=== PATIENT | female | born 1955 | race African-American/Black ===

== ENCOUNTER 2016-05-04 20:27 | Emergency (ER) | payer MEDICAID ==
[~2016-05-04] VITALS: Ht 165.1 cm; Wt 68.0 kg
[~2016-05-04 20:27] MED LIST: ASPI-1035 PO; CLON0.2T PO; COR3 PO; FURO-151 PO; HYDR-523 PO; LISI-186 PO
[2016-05-04 21:04] VITALS: BP 141/91
[2016-05-04] MEDS ORDERED: IPRATROPIUM BROMIDE (0.02%) 0.5MG/2.5ML NEB HHN STA (21:30)
[2016-05-04] MEDS ORDERED: PREDNISONE 20MG TABLET PO STA (21:30)
[2016-05-04] MEDS ORDERED: ALBUTEROL (0.083%) 2.5MG/3ML NEB HHN STA (21:30)
[2016-05-04] MEDS ORDERED: ACETAMINOPHEN 325MG TABLET PO ONE (21:45)
[2016-05-04 21:49] LABS: HEMATOCRIT. 36.3 % (36.0-48.0); HEMOGLOBIN. 11.6 g/dL (12.0-16.0); MEAN CORPUSCULAR HEMOGLOBIN 26.5 pg (28.0-32.0); MEAN CORPUSCULAR HGB CONC 32.1 g/dL (31.0-37.0); MEAN CORPUSCULAR VOLUME 82.8 fL (81.0-99.0); MEAN PLATELET VOLUME 7.1 fl (7.4-10.4); PLATELET 254 x1000/uL (130-400); RED BLOOD CELL COUNT 4.38 mill/uL (4.2-5.4); RED CELL DISTRIBUTION WIDTH 25.2 % (11.6-14.6); WHITE BLOOD COUNT 12.8 x1000/uL (4.5-11.0)
[2016-05-04 21:54] LABS: DIFFERENTIAL COMMENT 1
[2016-05-04 21:58] LABS: INR 1.1; PROTHROMBIN TIME 11.7 sec
[2016-05-04 22:02] LABS: ALANINE AMINOTRANSFERASE 26 IU/L (13-61); ALBUMIN 2.5 g/dL (3.4-5.0); ANION GAP 14; CALCIUM 8.1 mg/dL (8.5-10.1); CARBON DIOXIDE 28 mEq/L (21-32); CHLORIDE 101 mEq/L (98-107); INDEX HEMOLYSI 1 (1-3); INDEX ICTERIC 1 (1-4); INDEX LIPEMIC 1 (1-3); UREA NITROGEN BLOOD 57 mg/dL (7-21); eGFR > 60 mL/min (>60)
[2016-05-04 22:07] LABS: TROPONIN I 0.17 ng/mL (0.00-0.04)
[2016-05-04 22:40] LABS: ANISOCYTOSIS 2+; PLATELET ESTIMATE NORMAL
[2016-05-04 22:41] LABS: HYPOCHROMASIA 1+; TARGET CELLS 1+
== END 2016-05-04 23:30 | disposition left against medical advice (07) ==
LOC: ER 20:27
DX: R06.02 Shortness of breath (principal); R07.9 Chest pain, unspecified; I11.0 Hypertensive heart disease with heart failure; I50.9 Heart failure, unspecified; J44.9 Chronic obstructive pulmonary disease, unspecified; J45.909 Unspecified asthma, uncomplicated; Z88.6 Allergy status to analgesic agent; Z88.8 Allergy status to other drugs, medicaments and biological substances; Z79.82 Long term (current) use of aspirin; Z79.899 Other long term (current) drug therapy; Z90.710 Acquired absence of both cervix and uterus
CPT/HCPCS: 36415; 71010; 80053; 84484; 85025; 85610; 94640; 99285; J7512; J7611; Z7610

== ENCOUNTER 2016-10-19 02:41 | Inpatient (IN) | payer OTHER ==
[~2016-10-19] VITALS: Ht 162.6 cm; Wt 74.8 kg
[~2016-10-19 02:41] MED LIST changes: -ASPI-1035 PO; +ASPI-1159 PO; +HYDR8TAB43 PO; +HYOSCYAMINE; +LORA0.5T2 PO; +NITR100C PO; +OXYC-159 PO; +POTA10CA42 PO; +SPIR50TA26 PO; +isordil PO
[2016-10-19] MEDS ORDERED: SODIUM CHLORIDE 0.9% 1,000 ML IV ONE (03:02)
[2016-10-19] MEDS ORDERED: NITROGLYCERIN OINT 1GM/INCH UDPKT TD ONE (03:15)
[2016-10-19] MEDS ORDERED: ASPIRIN 81MG TABLET PO ONE (03:15)
[2016-10-19 03:26] LABS: BG FRACTION INSPIRED OXYGEN 21; BG HCO3 ACT 26.4 mmol/L (22.0-26.0); BG METHEMOGLOBIN 0.3 % (0.0-1.5); BG OXYGEN SATURATION 90.8 % (92.0-98.5); BG OXYHEMOGLOBIN 88.7 % (94.0-97.0); BG PCO2 45.4 mmHg (35.0-45.0); BG PH 7.382 (7.350-7.450); BG PO2 67.5 mmHg (75.0-100.0); BG SAMPLE SITE RIGHT RADIAL; BG TOTAL HEMOGLOBIN 10.2 g/dL (12.0-18.0); BG VENT MODE ROOM AIR
[2016-10-19 03:53] LABS: CLARITY URINE CLEAR (CLEAR); COLOR URINE YELLOW (YELLOW); GLUCOSE URINE NEGATIVE (NEGATIVE); KETONES URINE NEGATIVE (NEGATIVE); LEUKOCYTE ESTERASE URINE NEGATIVE (NEGATIVE); NITRITE URINE NEGATIVE (NEGATIVE); OCCULT BLOOD URINE NEGATIVE (NEGATIVE); PROTEIN URINE NEGATIVE (NEGATIVE); SPECIFIC GRAVITY URINE 1.009 (1.005-1.030); UROBILINOGEN URINE 0.2 E.U./dL (0.2-1.0)
[2016-10-19] MEDS ORDERED: ALBUTEROL (0.083%) 2.5MG/3ML NEB HHN NR ×2 (03:58→05:00)
[2016-10-19] MEDS ORDERED: METHYLPREDNISOLONE SOD SUCC 125 MG/2 ML VIAL IV NR (03:58)
[2016-10-19] MEDS ORDERED: LEVOFLOXACIN 750MG PREMIX 150 ML IV NR (04:00)
[2016-10-19] MEDS ORDERED: MAGNESIUM 2 G PREMIX 50 ML IV NR (04:00)
[2016-10-19 04:52] LABS: HEMATOCRIT. 28.5 % (36.0-48.0); HEMOGLOBIN. 8.7 g/dL (12.0-16.0); MEAN CORPUSCULAR HEMOGLOBIN 24.4 pg (28.0-32.0); MEAN CORPUSCULAR VOLUME 79.7 fL (81.0-99.0); MEAN PLATELET VOLUME 7.5 fl (7.4-10.4); PLATELET 291 x1000/uL (130-400); RED BLOOD CELL COUNT 3.57 mill/uL (4.2-5.4); RED CELL DISTRIBUTION WIDTH 23.8 % (11.6-14.6)
[2016-10-19 05:02] LABS: D-DIMER 2.25 mg/L FEU (<0.50); PARTIAL THROMBOPLASTIN TIME 24.5 sec (23.4-31.0); PROTHROMBIN TIME 10.8 sec (9.4-11.6)
[2016-10-19 05:10] LABS: CARBON DIOXIDE 28 mEq/L (21-32); CHLORIDE 103 mEq/L (98-107); ETHANOL BLOOD < 10 mg/dL; TROPONIN I 0.14 ng/mL (0.00-0.04)
[2016-10-19 07:34] LABS: PLATELET ESTIMATE NORMAL
[2016-10-19 08:00] VITALS: BP 149/74
[2016-10-19 08:30] VITALS: BP 149/74
[2016-10-19] MEDS ORDERED: DOCUSATE SODIUM 100MG CAPSULE PO PRN (10:15)
[2016-10-19] MEDS ORDERED: ACETAMINOPHEN 325MG TABLET PO PRN (10:15)
[2016-10-19] MEDS: AZITHROMYCIN 500 MG TABLET PO SCH (11:51)
[2016-10-19] MEDS: HYDROCODONE/ACETAMINOPHEN 5/325MG TABLET PO PRN (11:52)
[2016-10-19 11:53] LABS: *AMPHETAMINES SCREEN URINE NEGATIVE (NEGATIVE); *BARBITURATES SCREEN URINE NEGATIVE (NEGATIVE); *BENZODIAZEPINES SCREEN URINE NEGATIVE (NEGATIVE); *COCAINE SCREEN URINE NEGATIVE (NEGATIVE); CANNABINOID URINE SCREEN NEGATIVE (NEGATIVE); METHADONE URINE SCREEN NEGATIVE (NEGATIVE); OPIATES URINE SCREEN PRESUMTIVE POSITIVE (NEGATIVE); PHENCYCLIDINE URINE SCREEN NEGATIVE (NEGATIVE)
[2016-10-19] MEDS: IPRATROPIUM/ALBUTEROL 0.5-3(2.5)MG/3ML NEB INH PRN (11:56)
[2016-10-19] MEDS: BUDESONIDE 0.5MG/2ML NEB HHN SCH ×2 (11:57→21:08)
[2016-10-19 12:00] VITALS: BP 127/77
[2016-10-19] MEDS: HEPARIN 5000 UNITS/ML VIAL SUBCUT SCH ×2 (12:08→21:35)
[2016-10-19] MEDS: SODIUM CHLORIDE 0.9% 1,000 ML IV SCH (12:09)
[2016-10-19] MEDS: DIPHENHYDRAMINE 50MG/ML VIAL IV PRN ×2 (12:28→21:49)
[2016-10-19] MEDS: HYDROMORPHONE HCL/PF 2MG/ML CPJ IV PRN ×3 (12:29→21:48)
[2016-10-19 15:21] LABS: CREATINE KINASE MB FRACTION 5.2 ng/mL (0.5-3.6); TROPONIN I 0.12 ng/mL (0.00-0.04)
[2016-10-19 16:00] VITALS: BP 140/80
[2016-10-19] MEDS: METHYLPREDNISOLONE SOD SUCC 40 MG/ML VIAL IV SCH ×2 (17:47→21:33)
[2016-10-19 20:00] VITALS: BP 129/73
[2016-10-19] MEDS: MAGNESIUM/ALUMINUM HYDROXIDE/SIMETHICONE 30ML UDC PO PRN (21:23)
[2016-10-19] MEDS: CARVEDILOL 3.125 MG TABLET PO SCH (21:34)
[2016-10-19 23:02] LABS: CREATINE KINASE MB FRACTION 4.8 ng/mL (0.5-3.6); TROPONIN I 0.12 ng/mL (0.00-0.04)
[2016-10-20] VITALS: BP 119/85
[2016-10-20] MEDS: PANTOPRAZOLE 40MG DR TABLET PO SCH ×3 (00:09→14:00)
[2016-10-20] MEDS: HYDROMORPHONE HCL/PF 2MG/ML CPJ IV PRN ×5 (03:50→21:38)
[2016-10-20] MEDS: DIPHENHYDRAMINE 50MG/ML VIAL IV PRN ×4 (03:50→22:56)
[2016-10-20 04:00] VITALS: BP 134/79
[2016-10-20] MEDS: SODIUM CHLORIDE 0.9% 1,000 ML IV SCH ×2 (05:52→13:07)
[2016-10-20] MEDS: METHYLPREDNISOLONE SOD SUCC 40 MG/ML VIAL IV SCH ×3 (05:52→21:37)
[2016-10-20 06:58] LABS: HEMATOCRIT. 29.2 % (36.0-48.0); HEMOGLOBIN. 8.9 g/dL (12.0-16.0); MEAN CORPUSCULAR HEMOGLOBIN 24.7 pg (28.0-32.0); MEAN CORPUSCULAR VOLUME 80.7 fL (81.0-99.0); MEAN PLATELET VOLUME 7.7 fl (7.4-10.4); PLATELET 328 x1000/uL (130-400); RED BLOOD CELL COUNT 3.62 mill/uL (4.2-5.4); RED CELL DISTRIBUTION WIDTH 23.4 % (11.6-14.6)
[2016-10-20 08:00] VITALS: BP 138/90
[2016-10-20] MEDS: IPRATROPIUM/ALBUTEROL 0.5-3(2.5)MG/3ML NEB INH PRN ×4 (08:50→21:16)
[2016-10-20] MEDS: BUDESONIDE 0.5MG/2ML NEB HHN SCH ×2 (08:51→21:16)
[2016-10-20] MEDS: HEPARIN 5000 UNITS/ML VIAL SUBCUT SCH ×2 (09:16→21:37)
[2016-10-20] MEDS: AZITHROMYCIN 500 MG TABLET PO SCH (09:16)
[2016-10-20] MEDS: CARVEDILOL 3.125 MG TABLET PO SCH (09:16)
[2016-10-20 10:09] LABS: ATYPICAL LYMPHOCYTES 1
[2016-10-20 10:10] LABS: PLATELET ESTIMATE NORMAL
[2016-10-20 12:00] VITALS: BP 165/78
[2016-10-20] MEDS: MAGNESIUM/ALUMINUM HYDROXIDE/SIMETHICONE 30ML UDC PO PRN ×2 (13:06→15:54)
[2016-10-20] MEDS: CLONIDINE 0.1MG TABLET PO PRN (13:27)
[2016-10-20 16:00] VITALS: BP 116/69
[2016-10-20] MEDS: ONDANSETRON HCL 4MG/2ML VIAL IV PRN (17:10)
[2016-10-20 20:00] VITALS: BP 126/81
[2016-10-20] MEDS: CARVEDILOL 12.5MG TABLET PO SCH (21:38)
[2016-10-21] VITALS: BP 123/84
[2016-10-21] MEDS: ONDANSETRON HCL 4MG/2ML VIAL IV PRN ×3 (01:33→20:18)
[2016-10-21] MEDS: HYDROMORPHONE HCL/PF 2MG/ML CPJ IV PRN ×6 (01:34→22:34)
[2016-10-21 04:00] VITALS: BP 130/86
[2016-10-21] MEDS: DIPHENHYDRAMINE 50MG/ML VIAL IV PRN ×3 (05:11→22:33)
[2016-10-21] MEDS: METHYLPREDNISOLONE SOD SUCC 40 MG/ML VIAL IV SCH ×3 (05:11→21:49)
[2016-10-21 05:36] LABS: HEMATOCRIT. 30.1 % (36.0-48.0); HEMOGLOBIN. 9.1 g/dL (12.0-16.0); MEAN CORPUSCULAR HEMOGLOBIN 24.1 pg (28.0-32.0); MEAN CORPUSCULAR VOLUME 80.1 fL (81.0-99.0); MEAN PLATELET VOLUME 8.1 fl (7.4-10.4); PLATELET 352 x1000/uL (130-400); RED BLOOD CELL COUNT 3.76 mill/uL (4.2-5.4); RED CELL DISTRIBUTION WIDTH 23.3 % (11.6-14.6)
[2016-10-21 08:00] VITALS: BP 125/89
[2016-10-21] MEDS: BUDESONIDE 0.5MG/2ML NEB HHN SCH ×2 (08:05→20:44)
[2016-10-21] MEDS ORDERED: FAMOTIDINE 20MG TABLET PO SCH (09:00)
[2016-10-21] MEDS: PANTOPRAZOLE 40MG DR TABLET PO SCH (09:44)
[2016-10-21] MEDS: AZITHROMYCIN 500 MG TABLET PO SCH (09:44)
[2016-10-21] MEDS: HEPARIN 5000 UNITS/ML VIAL SUBCUT SCH ×2 (09:45→21:51)
[2016-10-21] MEDS: CARVEDILOL 12.5MG TABLET PO SCH ×2 (09:45→21:49)
[2016-10-21] MEDS: IPRATROPIUM/ALBUTEROL 0.5-3(2.5)MG/3ML NEB INH PRN (11:54)
[2016-10-21 12:00] VITALS: BP 127/76
[2016-10-21 13:40] LABS: PLATELET ESTIMATE NORMAL
[2016-10-21] MEDS: IPRATROPIUM/ALBUTEROL 0.5-3(2.5)MG/3ML NEB HHN SCH ×2 (15:18→20:44)
[2016-10-21 16:00] VITALS: BP 130/80
[2016-10-21 20:00] VITALS: BP 131/83
[2016-10-21] MEDS: HYDROCODONE/ACETAMINOPHEN 5/325MG TABLET PO PRN (21:59)
[2016-10-22] VITALS: BP 136/97
[2016-10-22] MEDS: IPRATROPIUM/ALBUTEROL 0.5-3(2.5)MG/3ML NEB HHN SCH ×6 (00:28→20:38)
[2016-10-22] MEDS: ONDANSETRON HCL 4MG/2ML VIAL IV PRN ×3 (00:50→23:45)
[2016-10-22] MEDS: HYDROMORPHONE HCL/PF 2MG/ML CPJ IV PRN ×3 (02:50→11:18)
[2016-10-22 04:00] VITALS: BP 143/86
[2016-10-22] MEDS: HYDROCODONE/ACETAMINOPHEN 5/325MG TABLET PO PRN ×3 (05:45→14:16)
[2016-10-22] MEDS: METHYLPREDNISOLONE SOD SUCC 40 MG/ML VIAL IV SCH ×3 (05:45→21:13)
[2016-10-22] MEDS: DIPHENHYDRAMINE 50MG/ML VIAL IV PRN ×3 (06:38→23:45)
[2016-10-22 08:00] VITALS: BP 140/87
[2016-10-22] MEDS: BUDESONIDE 0.5MG/2ML NEB HHN SCH (08:35)
[2016-10-22] MEDS: HEPARIN 5000 UNITS/ML VIAL SUBCUT SCH ×2 (09:30→21:13)
[2016-10-22] MEDS: CARVEDILOL 12.5MG TABLET PO SCH ×2 (09:30→21:14)
[2016-10-22] MEDS: AZITHROMYCIN 500 MG TABLET PO SCH (09:30)
[2016-10-22] MEDS: PANTOPRAZOLE 40MG DR TABLET PO SCH (09:30)
[2016-10-22 12:00] VITALS: BP 133/86
[2016-10-22 16:00] VITALS: BP 136/92
[2016-10-22 20:00] VITALS: BP 125/79
[2016-10-23] VITALS: BP 128/81
[2016-10-23] MEDS: IPRATROPIUM/ALBUTEROL 0.5-3(2.5)MG/3ML NEB HHN SCH ×4 (00:16→20:20)
[2016-10-23 04:00] VITALS: BP 133/95
[2016-10-23] MEDS: METHYLPREDNISOLONE SOD SUCC 40 MG/ML VIAL IV SCH ×3 (05:00→21:12)
[2016-10-23] MEDS: ONDANSETRON HCL 4MG/2ML VIAL IV PRN (05:00)
[2016-10-23] MEDS: HYDROCODONE/ACETAMINOPHEN 5/325MG TABLET PO PRN ×2 (05:02→10:33)
[2016-10-23] MEDS: DIPHENHYDRAMINE 50MG/ML VIAL IV PRN ×4 (05:09→23:24)
[2016-10-23] MEDS: PANTOPRAZOLE 40MG DR TABLET PO SCH ×2 (07:40→10:32)
[2016-10-23 07:51] LABS: BASOPHILS % 0.4 % (0.0-2.0); HEMATOCRIT. 28.7 % (36.0-48.0); HEMOGLOBIN. 8.8 g/dL (12.0-16.0); LYMPHOCYTES % 7.2 % (20.0-50.0); MEAN CORPUSCULAR HEMOGLOBIN 24.6 pg (28.0-32.0); MEAN PLATELET VOLUME 8.6 fl (7.4-10.4); MONOCYTES % 9.2 % (2.0-8.0); NEUTROPHILS % 83.2 % (40.0-76.0); PLATELET 343 x1000/uL (130-400); RED BLOOD CELL COUNT 3.59 mill/uL (4.2-5.4); RED CELL DISTRIBUTION WIDTH 22.8 % (11.6-14.6)
[2016-10-23 08:00] VITALS: BP 135/90
[2016-10-23] MEDS ORDERED: SODIUM POLYSTYRENE SULFONATE 15 G/60 ML BOT PO SCH (10:15)
[2016-10-23] MEDS: AZITHROMYCIN 500 MG TABLET PO SCH (10:29)
[2016-10-23] MEDS: CARVEDILOL 12.5MG TABLET PO SCH ×2 (10:31→21:12)
[2016-10-23] MEDS: HEPARIN 5000 UNITS/ML VIAL SUBCUT SCH ×2 (10:34→21:12)
[2016-10-23 12:00] VITALS: BP 141/84
[2016-10-23] MEDS: HYDROMORPHONE HCL/PF 2MG/ML CPJ IV PRN ×2 (14:44→21:11)
[2016-10-23 16:00] VITALS: BP 152/106
[2016-10-23] MEDS: CLONIDINE 0.1MG TABLET PO PRN (17:24)
[2016-10-23 20:00] VITALS: BP 142/90
[2016-10-24] VITALS (7 sets, daily range): BP systolic 139–160; BP diastolic 78–104
[2016-10-24] MEDS: IPRATROPIUM/ALBUTEROL 0.5-3(2.5)MG/3ML NEB HHN SCH ×4 (00:24→12:38)
[2016-10-24] MEDS: HYDROMORPHONE HCL/PF 2MG/ML CPJ IV PRN ×2 (02:58→10:17)
[2016-10-24] MEDS: METHYLPREDNISOLONE SOD SUCC 40 MG/ML VIAL IV SCH (05:35)
[2016-10-24] MEDS: CLONIDINE 0.1MG TABLET PO PRN (05:35)
[2016-10-24] MEDS: DIPHENHYDRAMINE 50MG/ML VIAL IV PRN (06:07)
[2016-10-24] MEDS ORDERED: FOLIC ACID/VITAMIN B COMP W-C TABLET PO SCH (09:00)
[2016-10-24] MEDS: AZITHROMYCIN 500 MG TABLET PO SCH (09:29)
[2016-10-24] MEDS: CARVEDILOL 12.5MG TABLET PO SCH (09:30)
[2016-10-24] MEDS: PANTOPRAZOLE 40MG DR TABLET PO SCH (09:30)
[2016-10-24] MEDS: HYDROCODONE/ACETAMINOPHEN 5/325MG TABLET PO PRN (09:31)
[2016-10-24] MEDS: HEPARIN 5000 UNITS/ML VIAL SUBCUT SCH (09:33)
[2016-10-24] MEDS ORDERED: PREDNISONE 20MG TABLET PO SCH (17:00)
== END 2016-10-24 14:25 | disposition hospice, home (50) | DRG 469 ==
LOC: ER 02:41 → 7WST 04:23 → ENRESERV 04:27
PROVIDERS: ADMIT Internal Medicine; ATTEND Internal Medicine
PROC: 5A09357 Assistance with Respiratory Ventilation, Less than 24 Consecutive Hours, Continuous Positive Airway Pressure (ICD-10-PCS; principal; 2016-10-20)
DX: N17.9 Acute kidney failure, unspecified (principal); J96.01 Acute respiratory failure with hypoxia; I50.23 Acute on chronic systolic (congestive) heart failure; C25.9 Malignant neoplasm of pancreas, unspecified; E46 Unspecified protein-calorie malnutrition; J44.1 Chronic obstructive pulmonary disease with (acute) exacerbation; J38.00 Paralysis of vocal cords and larynx, unspecified; I42.9 Cardiomyopathy, unspecified; D64.9 Anemia, unspecified; F10.10 Alcohol abuse, uncomplicated; I13.0 Hypertensive heart and chronic kidney disease with heart failure and stage 1 through stage 4 chronic kidney disease, or unspecified chronic kidney disease; N18.9 Chronic kidney disease, unspecified; F17.210 Nicotine dependence, cigarettes, uncomplicated; K40.90 Unilateral inguinal hernia, without obstruction or gangrene, not specified as recurrent; J04.10 Acute tracheitis without obstruction; F41.9 Anxiety disorder, unspecified; G89.3 Neoplasm related pain (acute) (chronic); Z82.49 Family history of ischemic heart disease and other diseases of the circulatory system; Z90.710 Acquired absence of both cervix and uterus; Z79.82 Long term (current) use of aspirin; Z79.899 Other long term (current) drug therapy; Z68.28 Body mass index [BMI] 28.0-28.9, adult
CPT/HCPCS: 36415; 36600; 71010; 71250; 76770; 80048; 80053; 80061; 80305; 81003; 82375; 82550; 82553; 82805; 83540; 83550; 83605; 83690; 83735; 83880; 84484; 85025; 85044; 85379; 85610; 85730; 87040; 87086; 93005; 93970; 94640; 94660; 94664; 96365; 96366; 96375; 99291; C1893; G0482; J1170; J1200; J1644; J1956; J2405; J2920; J2930; J3475; J7030; J7611; J7620; J7626; L0172